=== PATIENT | male | born 1965 | race Caucasian/White ===

== ENCOUNTER → 2017-02-25 | Outpatient (CLI) | payer OTHER | END | disposition home or self-care (01) | LOC: MRI 13:58 | DX: M77.11 Lateral epicondylitis, right elbow (principal); M70.21 Olecranon bursitis, right elbow; M25.421 Effusion, right elbow; M25.621 Stiffness of right elbow, not elsewhere classified; Y93.89 Activity, other specified ==

== ENCOUNTER 2019-09-19 13:42 | Emergency (ER) | payer SELFPAY ==
[~2019-09-19] VITALS: Ht 185.4 cm; Wt 122.5 kg
[2019-09-19] MEDS ORDERED: ORPHENADRINE C100 M1 PO (15:37)
[2019-09-19] MEDS ORDERED: VICO10300 PO (15:40)
== END 2019-09-19 15:56 | disposition home or self-care (01) ==
LOC: ED 13:42
DX: S22.39XA Fracture of one rib, unspecified side, initial encounter for closed fracture (principal); V89.2XXA Person injured in unspecified motor-vehicle accident, traffic, initial encounter; Y93.89 Activity, other specified; Y92.89 Other specified places as the place of occurrence of the external cause; Y99.8 Other external cause status

== ENCOUNTER → 2019-10-27 | Outpatient (CLI) | payer SELFPAY ==
[~2019-10-27] MED LIST: ORPHENADRINE C100 M1 PO; VICO10300 PO
== END | disposition home or self-care (01) ==
LOC: RESCLI 02:35
DX: S22.32XD Fracture of one rib, left side, subsequent encounter for fracture with routine healing (principal); J45.909 Unspecified asthma, uncomplicated; F17.210 Nicotine dependence, cigarettes, uncomplicated; Z79.899 Other long term (current) drug therapy; X58.XXXD Exposure to other specified factors, subsequent encounter